=== PATIENT | female | born 1980 | race Caucasian/White ===

== ENCOUNTER 2019-10-12 18:33 | Inpatient (IN) ==
[2019-10-12] MEDS ORDERED: NS 1,000 ML IV ONE ×2 (18:45→20:21)
[2019-10-12 19:07] LABS: BASO# 0.19 X1000 (0.0-0.2); BASO% 1.4 % (0.0-0.8); EOS# 0.49 X1000 (0.0-0.7); EOS% 3.7 % (0.0-10.0); HEMATOCRIT 35.8 % (37.0-47.0); HEMOGLOBIN 11.4 g/dL (12.0-16.0); IMM GRAN# 0.08 X1000 (0.0-0.04); IMM GRAN% 0.6 % (0.0-0.5); LYMPH# 6.33 X1000 (1.2-3.4); MCH 24.8 PG (27-31); MCHC 31.8 g/dL (33-37); MONO# 1.63 X1000 (0.11-0.59); MONO% 12.4 % (1.7-9.3); MPV 11.3 FL (7.4-10.4); NEUT# 4.46 X1000 (1.4-6.5); NEUT% 33.9 % (42.2-75.2); PLT 588 X1000 (130-400); RBC 4.59 XMIL (4.2-5.4); RDW 19.9 % (11.5-14.5); WBC 13.18 X1000 (4.8-10.8)
[2019-10-12 19:33] LABS: ACETAMINOPHEN < 1.2 ug/mL (10-30); AGAP 11; ALBUMIN 4.1 g/dL (3.5-5.0); ALKALINE PHOSPHATASE 78 U/L (32-104); BUN 14 mg/dL (8-22); CALCIUM 9.2 mg/dL (8.8-10.2); CHLORIDE 100 mmol/L (98-107); COSMO 277; CREATININE 0.7 mg/dL (0.5-0.9); ESTIMATED GFR > 60; GLUCOSE 113 mg/dL (70-104); GOT 53 U/L (10-30); GPT 50 U/L (10-36); POTASSIUM 4.4 mmol/L (3.5-5.1); SALICYLATES < 3.00 mg/dL (3-10); SODIUM 138 mmol/L (136-145); TCO2 27 mmol/L (25-35); TOTAL BILIRUBIN 0.37 mg/dL (0.20-1.00); TOTAL PROTEIN 8.1 g/dL (6.3-8.3)
[2019-10-12 19:40] LABS: FREE T4 0.9 ng/dL (0.93-1.70)
[2019-10-12 19:46] LABS: TSH 5.64 uIUmL (0.27-4.20)
--- NOTE | 2019-10-12 20:16 | EKG Report ---
Test Performed on : 10/12/2019 6:48:06 PM Test Reason : od Blood Pressure : / mmHG Vent. Rate : 095 BPM Atrial Rate : 095 BPM P-R Int : 184 ms QRS Dur : 074 ms QT Int : 384 ms P-R-T Axes : 037 -03 009 degrees QTc Int : 482 ms Normal sinus rhythm. Cannot rule out Anterior infarct (cited on or before 06-OCT-2019) Abnormal ECG When compared with ECG of 09-OCT-2019 14:33, No significant change was found Unconfirmed Result
[2019-10-12 20:48] LABS: URINE SOURCE CATH
[2019-10-12 21:07] LABS: BILIRUBIN URINE NEGATIVE (NEGATIVE); BLOOD URINE NEGATIVE (NEGATIVE); COLOR YELLOW; GLUCOSE URINE NEGATIVE (NEGATIVE); KETONE URINE NEGATIVE (NEGATIVE); LEUKOCYTES URINE NEGATIVE (NEGATIVE); NITRITE URINE NEGATIVE (NEGATIVE); PROTEIN URINE NEGATIVE (NEGATIVE); SP GRAVITY URINE 1.012; TURBIDITY URINE CLEAR (CLEAR); UROBILINOGEN URINE NORMAL (NORMAL)
[2019-10-12 21:08] LABS: UR EPITHELIAL CELLS <10 /HPF (<10); URINE BACTERIA NEGATIVE /HPF; URINE RBC <10 /HPF (<10); URINE WBC <10 /HPF (<10)
[2019-10-12 21:41] LABS: UR AMPHETAMINES QUAL NONE DETECTED (NONE DETECT); UR BARBITUATES QUAL NONE DETECTED (NONE DETECT); UR BENZODIAZEPIN QUAL PRESUMPTIVE POSITIVE (NONE DETECT); UR CANNABINOIDS QUAL PRESUMPTIVE POSITIVE (NONE DETECT); UR COCAINE QUAL NONE DETECTED (NONE DETECT); UR METHADONE QUAL NONE DETECTED (NONE DETECT); UR OPIATES QUAL NONE DETECTED (NONE DETECT); UR OXYCODONE QUAL NONE DETECTED (NONE DETECT); UR PCP QUAL NONE DETECTED (NONE DETECT)
[2019-10-12] MEDS ORDERED: QUELICIN IV ONE (22:52)
[2019-10-12] MEDS ORDERED: VERSED IV ONE (22:52)
[2019-10-12] MEDS ORDERED: VERSED ONE (23:03)
[2019-10-12] MEDS ORDERED: VERSED 100 MG in NS 80 ML IV SCH (23:30)
--- NOTE | 2019-10-12 23:33 | PROVIDER DOCUMENTATION ---
This chart was entered by Noemi Ybarra Scribe, acting as scribe for Mary Cabrera CRNP. [id number] Abuse/Overdose - General Chief Complaint: Suicide Attempt Stated Complaint: OVERDOSE Time Seen by Provider: 10/12/19 19:04 Source: patient, EMS Allergies/Adverse Reactions: Allergies Allergy/AdvReac Type Severity Reaction Status Date / Time metoclopramide HCl * Allergy Severe HIVES Verified 10/06/19 18:44 [From Reglan] Home Medications: Home Medication List Medication Instructions Recorded Confirmed Last Taken Type Diazepam [Valium] 10 mg PO TID 30 Days #180 tab 08/29/19 10/07/19 Unknown Rx Gabapentin [Neurontin] 600 mg PO TID 30 Days #90 tab 08/29/19 10/07/19 Unknown Rx Haloperidol [Haldol] 2 mg PO 1200 30 Days #30 tab 08/29/19 10/07/19 Unknown Rx Nicotine Patch [Nicoderm Patch] 21 mg TD DAILY 30 Days #30 08/29/19 10/06/19 U nknown Rx patch.[id number] Sertraline HCl 2 tab PO DAILY 30 Days #60 tab 08/29/19 10/07/19 Unknown Rx Ziprasidone [Geodon] 80 mg PO BID PC 30 Days #60 cap 08/29/19 10/07/19 Unknown Rx Buprenorphine/Naloxone S.l. 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 Ems reports they were called by pt mom. Pt was just released from [facility] yesterday. She diaphoretic and anxious upon exam. This episode of drinking or use began:: just prior to arrival Severity: reports: moderate, severe Psychiatric Complaints: reports: suicidal ideation Associated Symptoms: reports: denies symptoms Any injuries associated with this episode of intoxication?: No Similar Symptoms Previously?: Yes Recently seen or treated by another doctor?: Yes (just released from [facility] yeste rday) Review of Systems - Adult - REVIEW OF SYSTEMS - ADULT Constitutional: reports: see HPI. denies: chills, fever, fatique Eyes: reports: no symptoms reported Ears, Nose, Mouth & Throat: reports: no symptoms reported Cardiovascular: reports: see HPI. denies: chest pain, palpitations Respiratory: reports: see HPI. denies: shortness of breath Gastrointestinal: reports: no symptoms reported Genitourinary: reports: no symptoms reported Musculoskeletal: reports: no symptoms reported Integumentary: reports: no symptoms reported Neurological: reports: no symptoms reported Psychiatric: reports: see HPI, suicidal thoughts, other (overdose) Endocrine: reports: no symptoms reported Hematologic/Lymphatic: reports: no symptoms reported Allergic/Immunologic: reports: no symptoms reported All Other Systems: Reviewed and Negative Past History - Adult - PAST MEDICAL HISTORY-ADULT Review of Records: reports: Old Records Reviewed, Nursing Assessment Review, Medications Reviewed, Social history reviewed & non-contributory. Major Childhood Illnesses: reports: denies history Cardiovascular: reports: HTN Respiratory: reports: denies history Gastrointestinal: reports: denies history Obstetrical/Gynecological: reports: denies history Genitourinary: reports: kidney stones Musculoskeletal: reports: denies history Neurological: reports: denies history Psychiatric: reports: depression Endocrine/Immune: reports: denies history Other Conditions: reports: denies history - PRIOR SURGERIES/PROCEDURES Surgical/Procedure History: reports: BTL, , other (SPLEENECTOMY, TUBAL) - IMMUNIZATION STATUS Childhood Immunizations: See Nurse Assessment Flu Vaccine: See Nurse Assessment - FAMILY HISTORY Family History: reviewed, not pertinent Physical Exam-General - PHYSICAL EXAM-ADULT Initial Vital Signs Reviewed: Yes - CONSTITUTIONAL General Appearance: appears well, alert, anxious. negative: combative - EYES Eyes: PERRL/EOMI, pink conjunctivae. negative: photophobia - HEAD, EARS, NOSE, MOUTH & THROAT HENMT: normocephalic/atraumatic, moist mucous membranes. negative: angioedema - NECK Neck: supple, normal inspection. negative: C-spine tenderness - RESPIRATORY Respiratory: chest non-tender, lungs clear, normal breath sounds. negative: rhonchi, wheezing - CARDIOVASCULAR Cardiovascular: normal peripheral pulses, regular rate, rhythm, no edema. negative: bradycardia, tachycardia - GASTROINTESTINAL (ABDOMEN) Abdominal Exam: normal bowel sounds, non tender, soft. negative: guarding, rebound - LYMPHATIC Lymphatic: no adenopathy. negative: enlargement - MUSCULOSKELETAL Back Exam: normal inspection, no CVA tenderness, no vertebral tenderness Extremity: normal range of motion, normal inspection, normal capillary refill. negative: deformity - SKIN Integumentary: normal color, normal turgor, diaphoresis. negative: jaundice, rash - NEUROLOGIC Neurologic: manager case management II-XII nml as tested - PSYCHIATRIC Psych/Mental Status: oriented x 3, anxious Progress - PLAN OF CARE/RESULTS Progress/Plan/Lab Results: Vital Signs - 8 hr 10/12/19 18:37 Temperature 98 F Pulse Rate 77 Respiratory Rate 16 Blood Pressure 135/101 O2 Sat by Pulse Oximetry 93 L Bedside Urine ED: Urine Bedside Start: 10/12/19 19:24 Freq: ORDERED Status: Active Protocol: Activity Type Activity Date Activity User E-Sign Co-Sign Detail Recorded Client Recorded Date Recorded By Document 10/12/19 20:41 [id number] 10/12/19 20:41 [id number] 10/12/19 20:41 Point of Care [Bedside Point of Care] -Lot # [id number] - Results Negative -Control Line Visible? Yes Laboratory Results - last 24 hr 10/12/19 10/12/19 10/12/19 18:50 18:50 18:50 WBC 13.18 H RBC 4.59 Hgb 11.4 L Hct 35.8 L MCV 78.0 L MCH 24.8 L MCHC 31.8 L RDW Std Deviation 19.9 H Plt Count 588 H MPV 11.3 H Immature Gran % (Auto) 0.6 H Neut % (Auto) 33.9 L Lymph % (Auto) 48.0 [place] % (Auto) 12.4 H Eos % (Auto) 3.7 Baso % (Auto) 1.4 H Immature Gran # (Auto) 0.08 H Neut # (Auto) 4.46 Lymph # (Auto) 6.33 H [place] # (Auto) 1.63 H Eos # (Auto) 0.49 Baso # (Auto) 0.19 Sodium 138 Potassium 4.4 Chloride 100 Carbon Dioxide 27 Anion Gap 11 BUN 14 Creatinine 0.7 Estimated GFR/1.73 m2 > 60 BUN/Creatinine Ratio 20 Glucose 113 H POC Glucose Calculated Osmolality 277 Calcium 9.2 Total Bilirubin 0.37 AST 53 H ALT 50 H Alkaline Phosphatase 78 Total Protein 8.1 Albumin 4.1 Globulin 4.0 Albumin/Globulin Ratio 1.0 Plasma Lactate TSH Free T4 Urine Source Urine Color Urine Turbidity Urine pH Ur Specific [place] Urine Protein Ur Glucose (Stick) Ur Ketones (Stick) Urine Blood Urine Nitrite Urine Bilirubin Urobilinogen Dipstick Urine Leukocytes Urine WBC (Auto) Urine RBC (Auto) U Epithel Cells (Auto) Urine Bacteria (Auto) Salicylates < 3.00 L Urine Opiates Screen Ur Oxycodone Screen Ur Methadone, Qual Acetaminophen < 1.2 L Ur Barbiturates Screen Ur Phencyclidine Scrn Ur Amphetamines Screen U Benzodiazepines Scrn Urine Cocaine Screen U Cannabinoids Screen Plasma/Serum Ethyl Alc 10/12/19 10/12/19 10/12/19 18:50 18:52 20:30 WBC RBC Hgb Hct MCV MCH MCHC RDW Std Deviation Plt Count MPV Immature Gran % (Auto) Neut % (Auto) Lymph % (Auto) [place] % (Auto) Eos % (Auto) Baso % (Auto) Immature Gran # (Auto) Neut # (Auto) Lymph # (Auto) [place] # (Auto) Eos # (Auto) Baso # (Auto) Sodium Potassium Chloride Carbon Dioxide Anion Gap BUN Creatinine Estimated GFR/1.73 m2 BUN/Creatinine Ratio Glucose POC Glucose 116 H Calculated Osmolality Calcium Total Bilirubin AST ALT Alkaline Phosphatase Total Protein Albumin Globulin Albumin/Globulin Ratio Plasma Lactate TSH 5.64 H Free T4 0.90 L Urine Source Urine Color Urine Turbidity Urine pH Ur Specific [place] Urine Protein Ur Glucose (Stick) Ur Ketones (Stick) Urine Blood Urine Nitrite Urine Bilirubin Urobilinogen Dipstick Urine Leukocytes Urine WBC (Auto) Urine RBC (Auto) U Epithel Cells (Auto) Urine Bacteria (Auto) Salicylates Urine Opiates Screen NONE DETECTED Ur Oxycodone Screen NONE DETECTED Ur Methadone, Qual NONE DETECTED Acetaminophen Ur Barbiturates Screen NONE DETECTED Ur Phencyclidine Scrn NONE DETECTED Ur Amphetamines Screen NONE DETECTED U Benzodiazepines Scrn PRESUMPTIVE POSITIVE A Urine Cocaine Screen NONE DETECTED U Cannabinoids Screen PRESUMPTIVE POSITIVE A Plasma/Serum Ethyl Alc 10/12/19 10/12/19 20:30 21:05 WBC RBC Hgb Hct MCV MCH MCHC RDW Std Deviation Plt Count MPV Immature Gran % (Auto) Neut % (Auto) Lymph % (Auto) [place] % (Auto) Eos % (Auto) Baso % (Auto) Immature Gran # (Auto) Neut # (Auto) Lymph # (Auto) [place] # (Auto) Eos # (Auto) Baso # (Auto) Sodium Potassium Chloride Carbon Dioxide Anion Gap BUN Creatinine Estimated GFR/1.73 m2 BUN/Creatinine Ratio Glucose POC Glucose Calculated Osmolality Calcium Total Bilirubin AST ALT Alkaline Phosphatase Total Protein Albumin Globulin Albumin/Globulin Ratio Plasma Lactate 1.0 TSH Free T4 Urine Source CATH Urine Color YELLOW Urine Turbidity CLEAR Urine pH 7.0 Ur Specific [place] 1.012 Urine Protein NEGATIVE Ur Glucose (Stick) NEGATIVE Ur Ketones (Stick) NEGATIVE Urine Blood NEGATIVE Urine Nitrite NEGATIVE Urine Bilirubin NEGATIVE Urobilinogen Dipstick NORMAL Urine Leukocytes NEGATIVE Urine WBC (Auto) <10 Urine RBC (Auto) <10 U Epithel Cells (Auto) <10 Urine Bacteria (Auto) NEGATIVE Salicylates Urine Opiates Screen Ur Oxycodone Screen Ur Methadone, Qual Acetaminophen Ur Barbiturates Screen Ur Phencyclidine Scrn Ur Amphetamines Screen U Benzodiazepines Scrn Urine Cocaine Screen U Cannabinoids Screen Plasma/Serum Ethyl Alc Orders Category Date Time Status Cardiac Monitoring DIRECTED Care 10/12/19 18:54 Active ED: Urine Bedside ORDERED Care 10/12/19 19:24 Active Finger Stick Blood Sugar (ED) DIRECTED Care 10/12/19 18:45 Active Schroeder Cath Insertion ORDERED Care 10/12/19 20:21 Active Misc. NRSG Communication Order DIRECTED Care 10/12/19 18:52 Active Monitor Blood Pressure ORDERED Care 10/12/19 18:54 Active NEWS Score 2-4:Order NEWS Lactate Series NOW Care 10/12/19 18:46 Active Saline Loc NOW Care 10/12/19 18:45 Active CHEST-PORTABLE [RAD] Stat Exams 10/12/19 23:11 Taken ACETAMINOPHEN [TDM] Stat Lab 10/12/19 18:50 Completed ALCOHOL BLOOD Stat Lab 10/12/19 18:50 Completed CBC WITH ELECTRONIC DIFF [HEME] Stat Lab 10/12/19 18:50 Completed COMPREHENSIVE METABOLIC PANEL [CHEM] Stat Lab 10/12/19 18:50 Completed FREE T4 Stat Lab 10/12/19 18:50 Completed LACTATE, PLASMA [CHEM] Lab 10/12/19 21:05 Completed LACTATE, PLASMA [CHEM] Lab 10/12/19 22:00 Uncollected LACTATE, PLASMA [CHEM] Lab 10/13/19 01:00 Uncollected SALICYLATES [TDM] Stat Lab 10/12/19 18:50 Completed TSH Stat Lab 10/12/19 18:50 Completed UA NIMS W/REFLEX CULT [URINALYSIS] Stat Lab 10/12/19 20:30 Completed URINE DRUG SCREEN Stat Lab 10/12/19 20:30 Completed 0.9% Sodium Chloride Inj [Ns] 1,000 ml Med 10/12/19 20:21 Active IV 125 mls/hr 0.9% Sodium Chloride Inj [Ns] 1,000 ml Med 10/12/19 18:45 Discontinued IV 999 mls/hr 0.9% Sodium Chloride Inj [Ns] 80 ml Med 10/12/19 23:30 Active Midazolam [Versed] 100 mg IV As Directed mls/hr Midazolam [Versed] Med 10/12/19 22:52 Discontinued 2 mg IV NOW ONE Midazolam [Versed] Med 10/12/19 23:03 Discontinued 5 mg .ROUTE .STK-MED ONE Succinylcholine [Quelicin] Med 10/12/19 22:52 Discontinued 100 mg IV NOW ONE EKG [EKG] Stat Ther 10/12/19 19:25 Draft Result Diagrams: 10/12/19 18:50 10/12/19 18:50 - REASSESSMENT Reassessment #1 Time Reassessed: 19:41 Status: worsening (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 D?w Dr. camp) Reassessment #2 Time Reassessed: 20:41 Status: unchanged (remains lethargic- Pending intubation for airway protection) Reassessment #3 Time Reassessed: 22:00 Status: unchanged - EKG 1 Time of EKG reading by physician:: 18:49 EKG Read and Signed by:: Isaias Syed EKG Interpretation (*Must complete 3 of following elements*): Abnormal (cannot rule out anterior infarct, age undetermined) Rate: 95 Rhythm: NSR QRS: normal CA Interval: normal ST Wave: normal - CONSULTS/PCP/HOSPITALIST Notification #1 *Consult/PCP/Hospitalist*: Dr. Ford Time Discussed: 23:32 Consult Disposition: Admit Procedures - INTUBATION Time of Intubation: 23:10 Airway Evaluation: Obese, Large tongue Mallampati Class: 2 Intubation Method: orotracheal Equipment: Glidescope Tube Size (cm): 7.5 Pretreated with 100% Oxygen?: Yes Breath Sounds after Intubation: equal ETT Primary Tube Confirmation: Capnometry CO2 Change, Direct Visualization, Chest Rise and Fall, Tube placement verified on XRAY Intubation Complications: no complications Procedure Comment: Dr. Camp. 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 Attestation - Physician/ YESICA Attestation Patient care was provided by Advanced Practice Provider:: Yes Advanced Practice Provider:: Mary Cabrera Advanced Practice Provider documentation review:: The Mid-level provider documentation, treatment plan and medical decision making was reviewed by the physician who agrees with all treatment and medical decision making by the P. The physician spent face to face time with patient:: Yes (Dr. Camp) Advanced Practice Provider documentation review:: Supervising physician onsite and consulted in the evaluation and care of this patient. The physician did have a face to face encounter with the patient. This chart was documented by the indicated scribe, (Noemi Ybarra Scribe) and accurately reflects the services I performed and decisions made by me, Mary Cabrera CRNP, as attested by the provider's signature.
[2019-10-13 01:36] LABS: ALLEN TEST NO; BE 0.8 mmoll (-3.0-3.0); BLOOD TYPE ARTERIAL; HCO3-(ACT) 25.5 mmoll (20.0-26.0); METHB 1.7 % (0.0-1.5); O2(CT) 15.7 mL/dL (15.0-23.0); O2HB 95.7 % (95.0-99.0); PCO2(98.6) 32 mmHg (35-45); PO2(98.6) 126 mmHg (60-100); SAMPLE BLOOD; SAO2 99.5 % (95.0-100.0); SRATE 16 BPM; THB 11.5 g/dL (11.5-17.4); TVOL 600 mL; pH(98.6) 7.48 (7.35-7.45)
[2019-10-13 01:37] LABS: MODALITY VENTILATOR
--- NOTE | 2019-10-13 02:00 | HISTORY AND PHYSICAL ---
PRIMARY CARE PROVIDER: Unknown. CHIEF COMPLAINT: Suicide attempt. HISTORY OF PRESENTING ILLNESS: A 38-year-old female with a history of psychiatric illness, including schizophrenia and depression, hepatitis C, hypertension, who was just discharged from [facility] after treatment for suicide ideation, presented to emergency department after she took about 100 pills of Geodon, as per her mother. The patient was moderately lethargic in the ED and she was intubated for airway protection. At the time of my examination, there is no family around and not much history could be obtained. Most of the history is obtained from previous records. PAST MEDICAL HISTORY: Includes depression, hypertension, hepatitis C, schizophrenia. PAST SURGICAL HISTORY: Tonsillectomy, splenectomy. ALLERGIES: Reglan. CURRENT MEDICATIONS: Unknown and nursing staff will reconcile. SOCIAL HISTORY: History of smoking 1 pack per day. History of alcohol use and history of marijuana use. FAMILY HISTORY: No history of coronary disease. REVIEW OF SYSTEMS: Unable to assess. PHYSICAL EXAMINATION: GENERAL: The patient is currently intubated on a ventilator. VITAL SIGNS: Temperature 98 degrees, pulse 77, blood pressure 135/101. HEENT: Atraumatic, normocephalic. NECK: No masses. CHEST: Rhonchi. CARDIOVASCULAR: Regular rate and rhythm. ABDOMEN: Soft, positive bowel sounds. EXTREMITIES: Trace edema. NEUROLOGIC: She is sedated. GENITOURINARY: No bladder distention. SKIN: Warm. LABORATORIES AND STUDIES: WBCs 13.18, hemoglobin 11.4, hematocrit 35.8, platelets 588,000. Sodium 138, potassium 4.4, chloride 100, CO2 is 27, BUN is 14, creatinine 0.7. Glucose 113. Tox screen positive for benzos and cannabinoids. ASSESSMENT: A 38-year-old female with a history of psychiatric illness, including depression and schizophrenia, who was just discharged from [facility] after treatment for suicidal ideation, presented to emergency department after she overdosed on 100 pills of 80 mg Geodon and also unknown amounts of Neurontin. She was seen in the ED, she was lethargic, having respiratory problems and subsequently she was intubated. The patient will require ICU admission for further management. 1. Intentional drug overdose with Geodon and Neurontin. 2. Depression with suicide attempt. 3. Paranoid schizophrenia. 4. Hypertension. PLAN: 1. We will admit patient to ICU. 2. Continue with supportive care and ventilator management. 3. We will consult Psychiatry. 4. We will monitor blood pressure closely. 5. Put patient on DVT prophylaxis, SCDs. 6. We will continue to follow and reassess, make further recommendation based on her clinical course. cc: Kaiden Ford MD
[2019-10-13] MEDS ORDERED: TYLENOL PO PRN (02:10)
[2019-10-13 05:14] LABS: ALLEN TEST YES; BE 0.1 mmoll (-3.0-3.0); BLOOD TYPE ARTERIAL; METHB 1.1 % (0.0-1.5); O2HB 96.5 % (95.0-99.0); PCO2(98.6) 33 mmHg (35-45); PO2(98.6) 107 mmHg (60-100); SAMPLE BLOOD; SAO2 99.1 % (95.0-100.0); SRATE 16 BPM; THB 11.7 g/dL (11.5-17.4); TVOL 600 mL; pH(98.6) 7.46 (7.35-7.45)
[2019-10-13 05:15] LABS: MODALITY VENTILATOR
[2019-10-13] MEDS: NS 1,000 ML IV SCH ×3 (05:36→16:29)
[2019-10-13] MEDS ORDERED: VERSED 100 MG in NS 80 ML IV SCH (06:15)
--- NOTE | 2019-10-13 06:48 | Diag Imaging Result Doc PS360 ---
EXAM: CHEST-PORTABLE 10/13/2019 HISTORY: vent protocol TECHNIQUE: AP portable at 0525 COMMENT: There is an endotracheal tube with its tip at thoracic inlet and an NG tube with its tip below the diaphragm. The inspiration is better than on 10/12/2019. There is less pulmonary opacity. IMPRESSION: Improved pulmonary edema. Electronically signed by Kwaku Yanez 10/13/2019 6:46 AM
--- NOTE | 2019-10-13 06:49 | Diag Imaging Result Doc PS360 ---
EXAM: CHEST-PORTABLE 10/12/2019 HISTORY: POST ET TUBE TECHNIQUE: AP portable at 2316 COMMENT: The lungs are suboptimally expanded. There is an endotracheal tube with its tip at thoracic inlet. There is apparent interstitial and alveolar pulmonary edema. Some of this appearance may be due to the poor inspiration however. IMPRESSION: Pulmonary edema. Electronically signed by Kwaku Yanez 10/13/2019 6:47 AM
[2019-10-13] MEDS ORDERED: CATAPRES-TTS-1 TD ONE (09:30)
--- NOTE | 2019-10-13 12:24 | PROGRESS NOTE ---
DATE: 10/13/2019 Ms. Yañez is a 38-year-old who was admitted this morning with a history of psychiatric illness including schizophrenia and depression, hepatitis C, hypertension. She was discharged from [facility] for treatment for suicidal ideation. Presented to the emergency department after she took 100 pills of Geodon, according to her mother. The patient moderately lethargic. In the emergency room, was intubated for airway protection. At the time of examination, she has no family around. PAST MEDICAL HISTORY: Includes depression, hypertension, hepatitis C, and schizophrenia. Admitted with intentional overdose of Geodon and Neurontin. History of depression and suicide attempts before, paranoid schizophrenia, and hypertension. PHYSICAL EXAMINATION: Today, temperature 99.7 degrees, pulse 60, respirations 17, blood pressure 144/98. Pupils are equal and round. Lungs are clear in all lung pretty. Cardiovascular Examination: Regular rhythm and rate without murmur or S3. Abdomen is soft. Skin is warm and dry. Urine output was 4800 mL. Chest x-ray, improved pulmonary edema, endotracheal tube tip in the thoracic inlet, an NG tube with its tip at the diaphragm. Inspiration was better than the chest x-ray done on 10/12/2019. CURRENT ORDERS: She is on Lovenox 40 mg subcutaneous daily, midazolam which she got 100 mg IV, Protonix 40 mg daily, clonidine patch which we started this morning. Blood pressure running a little high. Normal saline going at 125 mL an hour. REVIEW OF HER LABS: From this morning, white count yesterday 13,180, hematocrit 35, platelet count 580,000. Electrolytes: Sodium 138, potassium 4.4, chloride 100, BUN 14, creatinine 0.7, calcium 9.2. AST 53, ALT 50. T4 was 0.9 and TSH was 5.64. cc: Arpit Smith MD
[2019-10-13] MEDS ORDERED: DIPRIVAN 1% IV PRN (13:20)
[2019-10-13] MEDS: PROTONIX IV SCH (13:30)
[2019-10-13] MEDS: DIPRIVAN 1% 1,000 MG/100 ML BOTTLE IV SCH ×3 (13:53→21:43)
[2019-10-13] MEDS ORDERED: DIPRIVAN 1% 1,000 MG/100 ML BOTTLE IV SCH (14:00)
[2019-10-13] MEDS ORDERED: OFIRMEV 1000 MG/ISOTONIC SOLN 1,000 MG/100 ML BOTTLE IV PRN (16:39)
--- NOTE | 2019-10-13 18:49 | PULMONOLOGY CONSULTATION ---
DATE: 10/13/2019 REQUESTING PROVIDER: Dr. Kaiden Ford. REASON FOR CONSULTATION: Ventilator management. HISTORY OF PRESENT ILLNESS: This is a 38-year-old female who presented to the ER via EMS last night with suicidal attempt by overdose of 100 pills of 80 mg Geodon and unknown amount of Neurontin. In the ER the patient was moderately lethargic and she was electively orally intubated eventually for airway protection. Patient currently staying intubated with maximal Versed dosage. She is awake and alert. She asks me to pull the tube out at this time and she bounces in the bed with fists aggressively at times with constant head movement and feet kicking. She is on 2 point restraints at this time. She reports no trouble breathing, coughing, chest pain, chest congestion, or chest pressure prior to admission. All other information is obtained from the E-chart. PAST MEDICAL HISTORY: 1. Hypertension. 2. Hepatitis C. 3. Kidney stones. 4. Chronic pain. 5. Schizophrenia. 6. Borderline personality disorder. 7. History of suicide ideation with plan. PAST SURGICAL HISTORY: 1. Tonsillectomy with adenoidectomy. 2. Splenectomy. 3. section. 4. Bilateral tubal ligation. SOCIAL HISTORY: The patient is . Disabled. Lives at home with family. She smokes 1 pack of cigarettes per day for unknown duration. She drinks occasionally and she has history of marijuana use. FAMILY HISTORY: Positive for cancer and diabetes mellitus. ALLERGIES: Metoclopramide with unknown reaction. REVIEW OF SYSTEMS: Limited as listed in HPI. PHYSICAL: Vital Signs: Temperature 100 degrees, blood pressure 152/101, pulse 63, respiratory rate 18, oxygen saturation 98% on mechanical ventilator with spontaneous rate 16, FiO2 40%, tidal volume 600 and PEEP 5. General: Appeared older than stated age, intubated, lying in bed, awake and alert with restlessness and aggressive action at times. HEENT: Atraumatic, normocephalic. Trachea midline. ET tube in place. Pupils equal, round, reactive to light. Respiratory: Even mechanical ventilated. Symmetrical excursion. Clear to auscultation bilaterally with good air entry bilaterally. Cardiovascular: Regular rate and rhythm with S1 and S2 appreciated. Gastrointestinal: Soft, nontender, nondistended. Normoactive bowel sounds in all 4 quadrants. Extremities: No pedal edema. No cyanosis. No clubbing. Dorsalis pedis 2+ bilaterally. Neurologic: Awake and alert on maximal Versed drip. Able to answer simple questions by shaking or nodding her head. Follow simple commands. LAB DATA: White blood cell 14.18, hemoglobin 11.4, hematocrit 35.8, platelet 588,000. Sodium 138, potassium 4.4, chloride 100, carbon dioxide 27, BUN 14, creatinine 0.7, glucose 113, AST 453, ALT 50, proBNP 233, TSH 5.64, free T4 0.90. ABG, pH 7.46, pCO2 33, PO2 107, HC03 25.0, base excess 0.1, oxyhemoglobin 96.5 on AC ventilator with spontaneous rate 16, FiO2 40%, tidal volume 600 and PEEP 5. IMAGING DATA: Chest x-ray this morning showed improved pulmonary edema. ASSESSMENT: This is a 38-year-old female with a medical history of hypertension, hepatitis C, kidney stone, chronic pain, history of leukocytosis secondary to splenectomy, schizophrenia, borderline personality disorder and history of suicidal ideation with plan. She has been admitted today with intentional drug overdose with Geodon and Neurontin. She was intubated secondary to altered mental status for airway protection. 1. Acute respiratory failure secondary to altered mental status. 2. Altered mental status secondary to intentional drug overdose. 3. Intentional drug overdose with Geodon and Neurontin. 4. Pulmonary edema. 5. Suicidal ideation with plan and attempt. PLAN: 1. Continue full ventilatory support. If the patient stays stable revealed consider start weaning trial tomorrow. We reviewed and titrated ventilator settings to the patient's needs per clinical protocol. We will monitor patient's response closely and adjust accordingly with followup ABG tomorrow. 2. We reviewed and titrated sedative to the patient's needs per clinical protocol. The patient currently is on maximal Versed drip. We are going to discontinue Versed and start Diprivan drip at this time. We will monitor patient's response closely to keep the patient comfortable on ventilator. 3. Continue fluid resuscitation with normal saline at 100 mL/h. 4. Continued GI and DVT prophylaxis. 5. We will monitor patient's blood pressure blood pressure closely. If hypotension develops, we will consider changing the sedative. 6. Further recommendations pending hospital course. Thank you for the courtesy of this consult. Dr. Rios did the examination, evaluation, management and orders. MARCO ANTONIO did the dictation for Dr. Rios according to his direction. Total evaluation time in minutes 32. Dictated by MARCO ANTONIO Brand for Jennifer Rios MD cc: MARCO ANTONIO Brand MD [facility]
[2019-10-14] MEDS: DIPRIVAN 1% 1,000 MG/100 ML BOTTLE IV SCH ×7 (01:31→21:09)
[2019-10-14] MEDS: NS 1,000 ML IV SCH ×2 (01:52→11:50)
[2019-10-14 05:03] LABS: ALLEN TEST YES; BE -5.1 mmoll (-3.0-3.0); BLOOD TYPE ARTERIAL; HCO3-(ACT) 20.9 mmoll (20.0-26.0); METHB 1.4 % (0.0-1.5); O2(CT) 15.7 mL/dL (15.0-23.0); O2HB 96.5 % (95.0-99.0); PCO2(98.6) 36 mmHg (35-45); PO2(98.6) 119 mmHg (60-100); SAMPLE BLOOD; SRATE 16 BPM; THB 11.4 g/dL (11.5-17.4); TVOL 600 mL; pH(98.6) 7.35 (7.35-7.45)
[2019-10-14 05:04] LABS: MODALITY VENTILATOR
[2019-10-14] MEDS: LOVENOX SUBQ SCH (05:39)
[2019-10-14 06:13] LABS: BASO# 0.07 X1000 (0.0-0.2); BASO% 0.3 % (0.0-0.8); EOS# 0.27 X1000 (0.0-0.7); EOS% 1.3 % (0.0-10.0); HEMATOCRIT 33.5 % (37.0-47.0); HEMOGLOBIN 10.7 g/dL (12.0-16.0); IMM GRAN% 0.5 % (0.0-0.5); LYMPH# 5.94 X1000 (1.2-3.4); LYMPH% 28.2 % (20.5-51.1); MCH 24.8 PG (27-31); MCHC 31.9 g/dL (33-37); MCV 77.7 FL (81-99); MONO# 1.97 X1000 (0.11-0.59); MONO% 9.4 % (1.7-9.3); MPV 12.4 FL (7.4-10.4); NEUT# 12.68 X1000 (1.4-6.5); NEUT% 60.3 % (42.2-75.2); PLT 565 X1000 (130-400); RBC 4.31 XMIL (4.2-5.4); RDW 20.4 % (11.5-14.5); WBC 21.03 X1000 (4.8-10.8)
[2019-10-14 06:37] LABS: AGAP 13; BUN 11 mg/dL (8-22); CALCIUM 8.7 mg/dL (8.8-10.2); CHLORIDE 109 mmol/L (98-107); COSMO 280; CREATININE 0.7 mg/dL (0.5-0.9); ESTIMATED GFR > 60; GLUCOSE 95 mg/dL (70-104); POTASSIUM 3.9 mmol/L (3.5-5.1); SODIUM 141 mmol/L (136-145); TCO2 19 mmol/L (25-35)
--- NOTE | 2019-10-14 06:54 | Diag Imaging Result Doc PS360 ---
EXAM: CHEST-1 VIEW HISTORY: SOB TECHNIQUE: Single view COMPARISON: 10/13/2019 FINDINGS: No change in the endotracheal tube or nasogastric tube. There are small bilateral pleural effusions. The heart is borderline mildly prominent and there is pulmonary edema. Bibasilar atelectasis. IMPRESSION: Mild interval worsening. Electronically signed by Jose Patrick 10/14/2019 6:52 AM
[2019-10-14 06:55] LABS: EOS 1 % (1-10); LYMPHS 24 % (21-51); MONO 9 % (1-9); SEGS 66 % (42-75)
[2019-10-14] MEDS: SODIUM CHLORIDE 0.9% INJ SCH (10:51)
[2019-10-14] MEDS: PROTONIX IV SCH (10:51)
--- NOTE | 2019-10-14 12:55 | PROGRESS NOTE ---
DATE: 10/14/2019 SUBJECTIVE: Ms. Yañez is intubated. She is sedated at this time. She is resting comfortably. She is in wrist restraints. OBJECTIVE: Vital signs: Temperature 98.4 degrees. She remains afebrile, pulse 50, respirations 16, blood pressure 119/80. Pupils are equal and round. Lungs are clear in all lung pretty. Cardiovascular: Regular rhythm and rate without murmur or S3. Urine output is 1900 mL. IMAGING: Chest x-ray from this morning, no interval worsening, no change in endotracheal tube or nasogastric tube. Small bilateral pleural effusions. Heart is borderline mildly prominent with pulmonary edema and bibasilar atelectasis. ASSESSMENT AND PLAN: 1. Acute respiratory failure secondary to altered mental status. 2. Altered mental status secondary to intentional drug overdose. 3. Intentional drug overdose with Geodon and Neurontin. 4. Pulmonary edema. 5. Suicidal ideation. REVIEW OF HER ORDERS: Looking at her orders, she is on Lovenox 40 mg subcutaneous daily, getting normal saline at 75 mL an hour. We are giving her acetaminophen 1000 mg IV q.6 p.r.n., Protonix 40 mg IV q.24 hours. She is on propofol, and she has a clonidine patch on at this time, which we discontinued that. cc: Arpit Smith MD
[2019-10-14] MEDS ORDERED: VANCOMYCIN IV PER PHARMACY MISC SCH (17:00)
[2019-10-14] MEDS: ZOSYN 3.375 GM in NS 50 ML IV SCH ×2 (17:08→22:08)
[2019-10-14] MEDS ORDERED: VANCOMYCIN 2,500 MG in NS 500 ML IV ONE (18:00)
--- NOTE | 2019-10-14 19:35 | PULMONOLOGY PROGRESS NOTE ---
DATE: 10/14/2019 SUBJECTIVE: Ms. Yañez continues to be intubated and sedated at this time. She appears to be resting comfortably. OBJECTIVE: Vital signs: Blood pressure is 124/77 with a heart rate of 49 to 52, respirations are 16, temperature is 98.4 degrees with O2 saturations 97% to 98% on 50% O2. HEENT: Head is normocephalic, atraumatic. Mucous membranes are moist. Pupils are equal, round and react to light. Sclerae anicteric. Cardiovascular: Regular rate and rhythm. S1 and S2 appreciated. No murmurs. Pulmonary: Breath sounds are clear. No increased work of breathing noted. Chest rises and falls symmetric with respiration. Gastrointestinal: Abdomen is soft, nondistended, with bowel sounds in all 4 quadrants. Neurologic: She is intubated and sedated. LABORATORY DATA: WBC is 21 with hemoglobin 10.7, hematocrit 33.5, and platelets 565,000. Sodium 141, potassium 3.9, BUN 11, creatinine 0.7 with a glucose of 95. ABGs: PH is 7.35 with pCO2 of 36, pO2 of 119, bicarbonate 20.9 on assist-control at the rate of 16, FiO2 of 50%, tidal volume 600 and PEEP of 5. Sputum culture reveals preliminary gram-negative adelita. DIAGNOSTIC DATA: Chest x-ray reveals mild interval worsening with small bilateral pleural effusions. Heart is borderline and mildly prominent. There is pulmonary edema with bibasilar atelectasis. ASSESSMENT: This is a 38-year-old female with: 1. Intentional drug overdose with Geodon, Neurontin, possibly calcium channel blockers. 2. Acute respiratory failure secondary to #1. 3. Altered mental status secondary to #1. 4. Pulmonary edema. 5. Suicidal ideation with plan and attempt. PLAN: 1. Continue full ventilatory support. 2. We will continue sedation with Diprivan. 3. Continue fluid resuscitation. 4. Continue gastric acid suppression. Dictated by MARCO ANTONIO Whittington for Logan Ridley MD cc: MARCO ANTONIO Whittington MD
[2019-10-15] MEDS: NS 1,000 ML IV SCH (00:47)
[2019-10-15] MEDS: DIPRIVAN 1% 1,000 MG/100 ML BOTTLE IV SCH ×4 (01:28→11:48)
[2019-10-15] MEDS: ZOSYN 3.375 GM in NS 50 ML IV SCH ×4 (04:13→22:13)
[2019-10-15 05:11] LABS: ALLEN TEST YES; BE -6.7 mmoll (-3.0-3.0); BLOOD TYPE ARTERIAL; HCO3-(ACT) 19.7 mmoll (20.0-26.0); METHB 0.7 % (0.0-1.5); O2(CT) 16.6 mL/dL (15.0-23.0); PCO2(98.6) 25 mmHg (35-45); PO2(98.6) 105 mmHg (60-100); SAMPLE BLOOD; SRATE 16 BPM; THB 12.1 g/dL (11.5-17.4); TVOL 600 mL; pH(98.6) 7.42 (7.35-7.45)
[2019-10-15 05:13] LABS: MODALITY VENTILATOR
[2019-10-15] MEDS: LOVENOX SUBQ SCH (05:29)
--- NOTE | 2019-10-15 07:25 | Diag Imaging Result Doc PS360 ---
EXAM: CHEST-1 VIEW HISTORY: SOB TECHNIQUE: Single view COMPARISON: 10/14/2019 FINDINGS: No change in the endotracheal or nasogastric tubes. There is bibasilar atelectasis and there may be underlying infiltrates. Vascular distention is slightly less prominent. Mild cardiomegaly. Small pleural effusions. IMPRESSION: Mild interval improvement Electronically signed by Jose Patrick 10/15/2019 7:22 AM
[2019-10-15] MEDS: VANCOMYCIN 1,750 MG in NS 250 ML IV SCH ×2 (09:00→20:15)
[2019-10-15] MEDS: SODIUM CHLORIDE 0.9% INJ SCH (11:44)
[2019-10-15] MEDS: PROTONIX IV SCH (11:44)
--- NOTE | 2019-10-15 12:35 | PROGRESS NOTE ---
DATE: 10/15/2019 Ms. Yañez is still intubated and sedated, appears comfortable right now. OBJECTIVE: Vital Signs: Temp 97.9 degrees, pulse of 37, pulse has been between 37 and 52. It seemed to come up when we go out and we decrease her sedation. Blood pressure 114/70. HEENT: Pupils are equal and round. Lungs: Are clear in all lung pretty. Cardiovascular: Regular rhythm and rate without murmur or S3. Abdomen: Is soft. Skin: Is warm and dry. Her chest x-ray mild interval improvement. There was some bibasilar atelectasis and there may be underlying infiltrates. Vascular distention is slightly less prominent. Mild cardiomegaly, small pleural effusions. ASSESSMENT AND PLAN: Intentional overdose with Geodon and Neurontin, possibly calcium channel blockers, acute respiratory failure, altered mental status, pulmonary edema, underlying suicidal ideation. Review of her orders: She is on Lovenox 40 mg daily, normal saline at 75 mL an hour, Protonix 40 mg IV q.24 hours, propofol drip, vancomycin 1750 mg IV every 12 hours, Zosyn 3.375 g IV q.6 hours. Review of her orders. Electrolytes from yesterday looked good. cc: Arpit Smith MD
[2019-10-15] MEDS ORDERED: LASIX IV ONE (13:58)
[2019-10-15] MEDS: D5W 1,000 ML IV SCH (14:23)
[2019-10-15] MEDS: MORPHINE IV PRN ×4 (14:56→23:07)
[2019-10-15 15:07] LABS: ALLEN TEST NO; BE -5.8 mmoll (-3.0-3.0); BLOOD TYPE ARTERIAL; HCO3-(ACT) 20.2 mmoll (20.0-26.0); METHB 0.8 % (0.0-1.5); O2HB 90.3 % (95.0-99.0); PCO2(98.6) 31 mmHg (35-45); PO2(98.6) 61 mmHg (60-100); SAMPLE BLOOD; SAO2 92.5 % (95.0-100.0); THB 12.6 g/dL (11.5-17.4); pH(98.6) 7.38 (7.35-7.45)
[2019-10-15 15:08] LABS: MODALITY VENTILATOR
[2019-10-15] MEDS: ATIVAN IV PRN ×3 (15:29→23:06)
--- NOTE | 2019-10-15 16:24 | PULMONOLOGY PROGRESS NOTE ---
DATE: 10/15/2019 SUBJECTIVE: Ms Yañez continues to be intubated and sedated. She appears comfortable. OBJECTIVE: Vital Signs: Blood pressure is 136/86 with a heart rate of 60, respirations are 18 to 20, temperature is 97.8 degrees with O2 saturations 100%. HEENT: Pupils are equal, round, react to light. EOMs. Sclerae are anicteric. Head is normocephalic, atraumatic. Mucous membranes are moist. Neck: Supple with trachea midline. Cardiovascular: Regular rate and rhythm. She is tachycardic. S1, S2 appreciated. No murmur. Pulmonary: Breath sounds are clear. Chest rises and falls symmetric with respiration. Gastrointestinal: Abdomen soft, nondistended with bowel sounds in all 4 quadrants. Skin: Warm and dry. LABS: Blood gases, pH is 7.42 with pCO2 25, PO2 of 105 and bicarb of 19.7. This is on assist- control rate of 16, 40%, tidal volume 600, PEEP of 5. Chest x-ray revealed mild interval improvement. Vascular distention is less prominent. Mild cardiomegaly. ASSESSMENT: This is a 38-year-old female with 1. Intentional drug overdose with Geodon, Neurontin and possibly calcium channel blockers. 2. Acute respiratory failure secondary to #1. 3. Altered mental status secondary to #1. 4. Pulmonary edema. 5. Suicidal ideation with plan and attempt. PLAN: 1. We will continue ventilator support. 2. Continue sedation with Diprivan. 3. Continue gastric acid suppression. Dictated by MARCO ANTONIO Whittington for Logan Ridley MD cc: MARCO ANTONIO Whittington MD
[2019-10-16] MEDS: MORPHINE IV PRN ×6 (00:43→19:05)
[2019-10-16] MEDS: ATIVAN IV PRN ×5 (03:51→21:48)
[2019-10-16] MEDS: D5W 1,000 ML IV SCH ×2 (05:00→17:38)
[2019-10-16] MEDS: ZOSYN 3.375 GM in NS 50 ML IV SCH ×4 (05:00→22:16)
[2019-10-16 05:56] LABS: ALLEN TEST YES; BE -1.7 mmoll (-3.0-3.0); BLOOD TYPE ARTERIAL; HCO3-(ACT) 23.6 mmoll (20.0-26.0); PCO2(98.6) 38 mmHg (35-45); PO2(98.6) 100 mmHg (60-100); SAMPLE BLOOD; pH(98.6) 7.39 (7.35-7.45)
[2019-10-16 05:57] LABS: MODALITY CANNULA
[2019-10-16] MEDS: LOVENOX SUBQ SCH (06:16)
[2019-10-16 07:04] LABS: BASO# 0.09 X1000 (0.0-0.2); BASO% 0.5 % (0.0-0.8); EOS# 0.82 X1000 (0.0-0.7); EOS% 4.2 % (0.0-10.0); HEMOGLOBIN 10.7 g/dL (12.0-16.0); IMM GRAN# 0.07 X1000 (0.0-0.04); IMM GRAN% 0.4 % (0.0-0.5); LYMPH# 5.42 X1000 (1.2-3.4); LYMPH% 27.9 % (20.5-51.1); MCHC 32.4 g/dL (33-37); MCV 77.1 FL (81-99); MONO# 2.23 X1000 (0.11-0.59); MONO% 11.5 % (1.7-9.3); MPV 12.3 FL (7.4-10.4); NEUT# 10.81 X1000 (1.4-6.5); NEUT% 55.5 % (42.2-75.2); PLT 539 X1000 (130-400); RBC 4.28 XMIL (4.2-5.4); RDW 19.8 % (11.5-14.5); WBC 19.44 X1000 (4.8-10.8)
[2019-10-16 07:10] LABS: AGAP 13; ALB/GLOB RATIO 0.8; ALBUMIN 3.4 g/dL (3.5-5.0); ALKALINE PHOSPHATASE 74 U/L (32-104); BUN 8 mg/dL (8-22); CALCIUM 8.8 mg/dL (8.8-10.2); CHLORIDE 102 mmol/L (98-107); COSMO 268; CREATININE 0.8 mg/dL (0.5-0.9); ESTIMATED GFR > 60; GLUCOSE 91 mg/dL (70-104); GOT 37 U/L (10-30); GPT 36 U/L (10-36); MAGNESIUM 1.7 mg/dL (1.5-2.7); PHOSPHORUS 4.3 mg/dL (2.7-4.5); POTASSIUM 3.6 mmol/L (3.5-5.1); SODIUM 135 mmol/L (136-145); TCO2 20 mmol/L (25-35); TOTAL BILIRUBIN 0.84 mg/dL (0.20-1.00); TOTAL PROTEIN 7.7 g/dL (6.3-8.3)
--- NOTE | 2019-10-16 07:52 | Diag Imaging Result Doc PS360 ---
EXAM: CHEST-1 VIEW - 10/16/2019 HISTORY: SOB TECHNIQUE: Portable one view chest COMPARISON: 10/15/2019 FINDINGS: There has been interval removal of the tracheal nasogastric tubes. There is been interval decrease in basilar atelectasis. There has been development of mild perihilar infiltrates or edema. There is no substantial pleural effusion or pneumothorax identified. Heart size is stable. IMPRESSION: Decrease in basilar infiltrates. Development of mild perihilar infiltrates or edema. Electronically signed by Justo Olivas 10/16/2019 7:50 AM
[2019-10-16] MEDS: VANCOMYCIN 1,750 MG in NS 250 ML IV SCH (07:56)
[2019-10-16] MEDS: PROTONIX IV SCH (10:20)
[2019-10-16] MEDS: SODIUM CHLORIDE 0.9% INJ SCH (10:20)
--- NOTE | 2019-10-16 11:53 | PULMONOLOGY PROGRESS NOTE ---
DATE: 10/16/2019 SUBJECTIVE: The patient is sitting up in the bed. She is screaming out, cursing the staff, pulling at restraints. When I walk in the talk to the patient, she immediately stops screaming. She makes eye contact. She participates in conversation. She asked why she was restrained. I informed her that she was pulling at her oxygen, trying to pull her IVs out, hitting at the staff, that she had attempted to kick the staff. She stated "well I only kicked one nurse, that doesn't matter." OBJECTIVE: Vital Signs: Blood pressure is 135/82, with a heart rate of 71, respirations are 18, temperature is 97.9 degrees, with O2 saturation of 96% on 5 L nasal cannula. Eyes: Pupils are equal, round, react to light. Sclerae are anicteric. HENT: Head is normocephalic, atraumatic. Mucous membranes are moist. Neck: Supple with trachea midline. Cardiovascular: Regular rate and rhythm. S1 and S2 appreciated. No murmur. Pulmonary: Breath sounds are clear. Chest rises and falls symmetric with respiration. Gastrointestinal: Abdomen is soft, nondistended, with bowel sounds in all 4 quadrants. Skin: Warm and dry. Neurologic: She is alert. She is oriented to person and place. She knows that it is September, she is just unsure of the date. She will follow commands. She will appear to be cooperative, although if you get too close, she will try to hit or kick. IMAGING AND LABORATORY DATA: WBC is 19.4, with hemoglobin 10.7, hematocrit 33, and platelets of 539,000. Sodium 135, potassium 3.6, BUN 8, creatinine 0.8, with a glucose of 91. ABGs show pH is 7.39, with a pCO2 of 38, PO2 of 100, and bicarb of 23.6. This was on 5 L nasal cannula. Chest x-ray revealed decrease in basilar infiltrate, development of mild perihilar infiltrates or edema. ASSESSMENT: This is a 38-year-old female with: 1. Intentional drug overdose with Geodon, Neurontin, and possibly calcium channel blockers. 2. Acute respiratory failure, resolved. 3. Altered mental status, resolved. 4. Pulmonary edema. The patient is cumulative -2100 mL. 5. Suicidal ideation with plan and attempt. When asked if the patient is suicidal, she states "not while I'm in here I'm not, I can't do it." PLAN: 1. Will continue with supplemental oxygen. 2. Attempt incentive spirometer. 3. Continue gastric acid suppression with Protonix. Dictated by MARCO ANTONIO Whittington for Logan Ridley MD cc: MARCO ANTONIO Whittington MD
--- NOTE | 2019-10-16 13:14 | PROGRESS NOTE ---
DATE: 10/16/2019 SUBJECTIVE: Ms. Yañez has been extubated. She was resting. She was a bit agitated this morning and she did require upper extremity restraints. OBJECTIVE: Temperature 98.7 degrees, pulse 70, respirations 18, blood pressure 111/75. Pupils are equal and round. Lungs are clear in all lung pretty. Cardiovascular Examination: Regular rhythm and rate without murmur or S3. Abdomen is soft. Skin is warm and dry. Urine output is about 10 L. ASSESSMENT AND PLAN: 1. Intentional drug overdose with Geodon and Neurontin, possible calcium channel filippo. She has improved. She was in respiratory failure and was put on the ventilator. She is now extubated. Seems to be improving. She is hungry so I will try and start feeding her a regular diet. 2. Acute respiratory failure, as above. 3. Altered mental status from a drug overdose and respiratory failure. 4. Pulmonary edema, which has improved. 5. Suicidal ideations. Aware. She is in observation. REVIEW OF HER ORDERS: She is getting D5 of water at 75 mL an hour. She is on Zosyn 3.375 g IV q.6, vancomycin 1750 mg IV q.12. We will start her on a regular diet. cc: Aprit Smith MD
[2019-10-17] MEDS: ATIVAN IV PRN ×4 (01:01→20:37)
[2019-10-17] MEDS ORDERED: VANCOMYCIN 1,500 MG in NS 250 ML IV SCH (02:00)
[2019-10-17] MEDS ORDERED: ATIVAN IV ONE (03:41)
[2019-10-17] MEDS: ZOSYN 3.375 GM in NS 50 ML IV SCH ×2 (04:31→12:07)
[2019-10-17 05:48] LABS: ALLEN TEST YES; BE -1.6 mmoll (-3.0-3.0); BLOOD TYPE ARTERIAL; HCO3-(ACT) 23.6 mmoll (20.0-26.0); METHB 1.1 % (0.0-1.5); O2HB 93.9 % (95.0-99.0); PCO2(98.6) 37 mmHg (35-45); PO2(98.6) 70 mmHg (60-100); SAMPLE BLOOD; SAO2 96.6 % (95.0-100.0); THB 11.3 g/dL (11.5-17.4)
[2019-10-17 05:53] LABS: MODALITY ROOM AIR
[2019-10-17] MEDS: D5W 1,000 ML IV SCH ×2 (06:17→19:17)
--- NOTE | 2019-10-17 06:32 | Diag Imaging Result Doc PS360 ---
EXAM: CHEST-1 VIEW 10/17/2019 HISTORY: SOB TECHNIQUE: AP portable at 0543 COMMENT: There is cardiomegaly. The lungs are slightly better expanded than on 10/16/2019. There is less interstitial and alveolar opacity in the parahilar regions. IMPRESSION: Cardiomegaly. Improved pulmonary edema. Electronically signed by Kwaku Yanez 10/17/2019 6:30 AM
[2019-10-17] MEDS ORDERED: ATIVAN IM ONE (06:36)
[2019-10-17] MEDS: LOVENOX SUBQ SCH (08:17)
[2019-10-17] MEDS: PROTONIX IV SCH (12:12)
--- NOTE | 2019-10-17 12:28 | PROGRESS NOTE ---
DATE: 10/17/2019 SUBJECTIVE: Ms. Yañez is breathing comfortably, awake. She is very anxious and lost IV access, so we are going to give her p.o. Ativan and that seems to help. She required some wrist restraints and had a hard time keeping her in the bed. Her story is that by report she took 100 Neurontin and some calcium channel blockers intentionally with suicide intent, so I am going to ask Psychiatry to evaluate and see if she is ready for transfer. I think medically she can go over there today if they accept her. OBJECTIVE: Vital Signs: Temperature 97.6 degrees, pulse 70, respirations 18, blood pressure 139/95. Eyes: Her pupils are equal and reactive. Neck: No distended neck veins. Lungs: Lungs are clear in all lung pretty. Cardiovascular exam: Regular rhythm and rate without murmur or S3. Abdomen: Abdomen is soft. Skin: Skin is warm and dry. : Urine output is 6600 mL. ASSESSMENT AND PLAN: 1. Her chest x-ray from this morning showed cardiomegaly, improved pulmonary edema. 2. Suicide attempt with overdose of Geodon and I guess it was some calcium channel blockers. Hemodynamically stable. Respiratory status looks good. She was intubated for a short time and is now on progressive care unit. 3. Severe anxiety--long history of anxiety and apparently depression as well. Recent overdose intentional. 4. Pulmonary venous hypertension, which is improved. 5. Nutrition is good. Eating well. REVIEW OF HER ORDERS: We can stop her vancomycin and Zosyn. cc: Arpit Smith MD
[2019-10-17] MEDS: NICODERM PATCH TD SCH (13:53)
--- NOTE | 2019-10-17 15:17 | PROVIDER PROGRESS NOTE ---
Progress Note Dr. Rios Progress Note/Pulmonary and or critical care Subjective: Patient is lying in bed on room air. She is on 4 point restraint. She is awake and alert. She becomes tearful at times. She is asking to take the restraint off. She states she could become violent, but she does not mean to and she also apologizes to the staff at the bedside. She is complaining of mild bilateral upper chest pain at this time secondary to "heavy smoking". She asks for patch. Objective: Vital Signs: T 97.6 (no fever in last 24 hours), MD 70, RR 18, BP 139/95 and SaO2 96% on room air. Physical Examination: General: Lying in bed with no acute distress noted. On loose 4 point restraint. HEENT: Atraumatic. Normocephalic. Trachea midline. PERRL. Respiratory: Even and unlabored. No increased work of breathing or accessory muscle use noted. Symmetrical excursion. Clear to auscultation with decreased air entry bilaterally. Cardiovascular: Regular rate and rhythm. S1 and S2 appreciated. Gastrointestinal: Soft. Nondistended. Nontender. Normoactive bowel sounds in all 4 quadrants. Extremities: No pedal edema. No clubbing or cyanosis noted. Neurologic: Awake and alert. Emotional. Answer simple questions. Follow simple commands. Labs and Radiology: Laboratory Results 10/16/19 10/17/19 19:17 05:45 Specimen Type ARTERIAL Sample Site R RADIAL pH 7.40 pCO2 37 pO2 70 HCO3 23.6 Base Excess -1.6 Oxyhemoglobin 93.9 L ABG O2 Sat (Calculated) 15.0 ABG O2 Saturation 96.6 ABG Carboxyhemoglobin 1.80 ABG Methemoglobin 1.1 Arpit Test YES A-a O2 Difference 33.0 Total Hemoglobin 11.3 L Lactate 1.60 Blood Gas Modality ROOM AIR FiO2 % 21.0 Random Vancomycin 24.80 Assessment: Acute respiratory failure secondary to altered mental status. Intubated on 10/12/19. Extubated on 10/15/19. Resolved. Altered mental status secondary to intentional drug overdose. Resolved. Intentional drug overdose with Geodon, Neurontin and possible calcium channel blockers. Pneumonia with pulmonary edema. Sputum culture on 10/13/19 grows Serratia Marcescens. CXR this morning shows cardiomegaly with improved pulmonary edema. Suicidal ideation with plan and attempt. Tobacco use and abuse prior to admission. Plan: Continue antibiotics including Zosyn and Vancomycin. Continue GI and DVT prophylaxis. Encourage incentive spirometer use routinely with deep breathing and coughing. Start Nicoderm patch. Smoking cessation education provided. Patient states she is ready to quit smoking. Psych Screening ordered.
[2019-10-17] MEDS ORDERED: TYLENOL PO PRN (19:32)
[2019-10-18] MEDS: ATIVAN IV PRN ×3 (01:50→11:08)
[2019-10-18] MEDS: LOVENOX SUBQ SCH (06:32)
[2019-10-18 07:13] VITALS: BP 156/92
[2019-10-18] MEDS: NICODERM PATCH TD SCH (08:43)
[2019-10-18] MEDS ORDERED: NEXIUM PACKET PO SCH (09:00)
--- NOTE | 2019-10-18 22:37 | DISCHARGE SUMMARY ---
ADMISSION DATE: 10/13/2019 DISCHARGE DATE: 10/18/2019 DISCHARGE DIAGNOSES: 1. Suicide attempt with overdose of multiple medications including Geodon but not specified. 2. Severe anxiety and apparent depression. 3. Pulmonary venous hypertension. 4. History of hepatitis C. 5. History of schizophrenia. PROCEDURES PERFORMED: Chest x-ray dated 10/12/2019 impression pulmonary edema. Chest x-ray dated 10/13/2019 impression improved pulmonary edema. Chest x-ray dated 10/14/2019 impression mild interval worsening. Chest x-ray dated 10/15/2019 impression mild interval improvement. Chest x-ray dated 10/16/2019 impression decrease in bibasilar infiltrates, development of mild perihilar infiltrates or edema. Chest x-ray dated 10/17/2019 cardiomegaly, improved pulmonary edema. HOSPITAL COURSE: 38-year-old female with a history of psychiatric illness including schizophrenia and depression, hepatitis C, hypertension, she was actually recently discharged from [facility] after treatment for suicide ideation, presented and was admitted on 10/13/2019 through emergency department after she took apparently 100 pills of Geodon per her mom, the patient was moderately lethargic in the emergency department and she was intubated for airway protection. At the time of the admitting physician examination there was no family around and not much history was obtained, most of the history was obtained from previous records. She was admitted to the Intensive Care Unit, Pulmonary Department was consulted due to her mechanical ventilation, we continued with full ventilatory support. She was sedated per clinical protocol, she was extubated I believe on 10/15/2019, after that the patient started to do well. We consulted Psychiatric Department who decided to take this patient back to [facility] so they can treat her. Her vital signs were stable and her oxygen saturation was good at room air, her leukocyte count was elevated but likely was reactive. She has no signs of infection, she was placed on antibiotics for a few days though. Patient seems to be on stable medical condition. We will discharge her with her home medications but of course, these will be adjusted at [facility], Psychiatric Department. VITAL SIGNS: Temperature 97.5 degrees, pulse 60, respiratory rate 12, blood pressure 156/92, oxygen saturation 95 on room air. HEENT: Head normocephalic, no trauma. PERRLA. Neck: Supple. No JVD. No masses. Central trachea. Chest: Clear to auscultation. I do not hear any wheezing. No rhonchi, no crepitus. Cardiovascular: RRR. Abdomen: Soft, protuberant. Neurologic: Patient is awake, alert, she is oriented. She seems to be anxious and she was crying during my evaluation. LABORATORY: No lab work done today. DISCHARGE MEDICATIONS: Basically she will continue with her home medications but those will be adjusted at [facility]. She has been on Suboxone 8 mg/2 mg sublingual t.i.d., diazepam 10 mg p.o. t.i.d., gabapentin [*] mg p.o. t.i.d., Haldol 2 mg p.o. at 12, nicotine patch daily 21 mg, Seroquel 200 mg p.o. daily in the morning and 400 mg in the afternoon, sertraline 200 mg p.o. daily and Geodon 80 mg p.o. b.i.d. This patient has been transferred to [facility]. They will take care of the medications, she seems to be stable. cc: Kristopher Enriquez MD
== END 2019-10-18 12:37 | DRG 917 ==
LOC: ED 18:33 → SUATTDRO 10-13 01:21 → ICU 10-13 01:21 → 2N 10-16 22:17
PROVIDERS: ATTEND Internal Medicine